=== PATIENT | female | born 1995 | race Caucasian/White ===

== ENCOUNTER 2018-01-09 14:39 | Inpatient (IN) | payer OTHER ==
[2018-01-09 14:46] LABS: Glucose,Whole Blood 111 mg/dL (75-99)
[2018-01-09] MEDS ORDERED: SODIUM CHLORIDE 0.9% 500 ML IV STA (14:47)
[2018-01-09 14:59] LABS: Basophils # (A) 0.1 k/uL (0-0.2); Basophils % (A) 0 %; Eosinophils # (A) 0.1 k/uL (0-0.7); Eosinophils % (A) 1 %; HCT 35.5 % (34.0-46.0); HGB 12.3 gm/dL (11.4-16.0); Lymphocytes # (A) 3.4 k/uL (1.0-4.8); Lymphocytes % (A) 20 %; MCH 31.8 pg (25.0-35.0); MCHC 34.6 g/dL (31.0-37.0); MCV 91.9 fL (80.0-100.0); Mean Platelet Volume 7.8; Monocytes # (A) 0.5 k/uL (0-1.0); Monocytes % (A) 3 %; Neutrophils # (A) 12.7 k/uL (1.3-7.7); Neutrophils % (A) 75 %; Platelet Count 212 k/uL (150-450); RBC 3.86 m/uL (3.80-5.40)
[2018-01-09 15:10] LABS: ALT 176 U/L (9-52); AST 221 U/L (14-36); Albumin 3.5 g/dL (3.5-5.0); Alcohol <10 mg/dL; Alkaline Phosphatase 147 U/L (38-126); Amylase 61 U/L (30-110); Anion Gap 10 mmol/L; Blood Urea Nitrogen 12 mg/dL (7-17); Calcium 9.1 mg/dL (8.4-10.2); Carbon Dioxide 20 mmol/L (22-30); Chloride 108 mmol/L (98-107); Glucose 106 mg/dL (74-99); Lipase 142 U/L (23-300); Potassium 4.2 mmol/L (3.5-5.1); Sodium 138 mmol/L (137-145); Total Bilirubin 0.5 mg/dL (0.2-1.3); Total Protein 6.1 g/dL (6.3-8.2)
[2018-01-09] MEDS ORDERED: LIDOCAINE 1% INJ 10MG/ML (20 ML MDV) ONE (15:10)
[2018-01-09] MEDS ORDERED: ONDANSETRON 4 MG/2 ML VIAL ONE (15:10)
[2018-01-09] MEDS ORDERED: OXYTOCIN 10 UNIT/ML 1 ML VIAL ONE (15:10)
[2018-01-09] MEDS ORDERED: PHENYLEPHRINE-0.9% NACL SYG 1 MG/10 ML SYRINGE ONE (15:10)
[2018-01-09] MEDS ORDERED: ROCURONIUM BROMIDE 10 MG/ML 10 ML VIAL IV ONE (15:10)
[2018-01-09] MEDS ORDERED: NEOSTIGMINE 1 MG/ML 10 ML VIAL ONE (15:10)
[2018-01-09] MEDS ORDERED: ETOMIDATE 2 MG/ML 10 ML VIAL ONE (15:10)
[2018-01-09] MEDS ORDERED: SUCCINYLCHOLINE CHLORIDE 100 MG/5 ML SYR IV ONE (15:10)
[2018-01-09] MEDS ORDERED: fentaNYL (PF) 50 MCG/ML 2 ML AMP ONE (15:10)
[2018-01-09] MEDS ORDERED: GLYCOPYRROLATE 0.2 MG/ML 2 ML VIAL ONE (15:10)
[2018-01-09] MEDS ORDERED: IV FLUID CONTINUATION 700 ML IV ONE (15:10)
[2018-01-09 15:11] LABS: Appearance,Urine Cloudy (Clear); Bilirubin,Urine Negative (Negative); Blood,Urine Moderate (Negative); Color,Urine Yellow; Glucose,Urine (UA) Trace (Negative); Ketones,Urine Negative (Negative); Leukocyte Esterase,Urine Negative (Negative); Mucus,Urine Rare /hpf; Nitrite,Urine Negative (Negative); Protein,Urine 1+ (Negative); RBC,Urine 79 /hpf (0-5); Specific Gravity,Urine 1.018 (1.001-1.035); Squamous Epithelial Cell,Urine 1 /hpf (0-4); Urobilinogen,Urine <2.0 mg/dL (<2.0); WBC,Urine 4 /hpf (0-5)
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
[2018-01-09 15:12] LABS: Creatine Kinase 131 U/L (30-135)
[2018-01-09] MEDS ORDERED: SODIUM CHLORIDE 0.9% 500 ML IV ONE (15:15)
[2018-01-09 15:17] LABS: INR 0.9 (<1.2); Prothrombin Time 9.3 sec (9.0-12.0)
[2018-01-09 15:17] LABS: Amphetamine Screen,Urine Not Detected (NotDetected); Barbiturate Screen,Urine Not Detected (NotDetected); Benzodiazepines Screen,Urine Not Detected (NotDetected); Cocaine Screen,Urine Not Detected (NotDetected); Methadone Screen, Urine Not Detected (NotDetected); Opiate Screen,Urine Not Detected (NotDetected); Oxycodone Screen, Urine Not Detected (NotDetected); Phencyclidine Screen,Urine Not Detected (NotDetected); Tricyclic Antidepressant,Urine Not Detected (NotDetected); Urn Cannabinoid Scrn Not Detected (NotDetected)
[2018-01-09] MEDS ORDERED: SODIUM CHLORIDE 0.9% 50 ML with ceFAZolin 2,000 MG IV ONE ×2 (15:17)
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
[2018-01-09 15:22] LABS: Partial Thromboplastin Time 20.5 sec (22.0-30.0)
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
[2018-01-09 15:25] LABS: Creatine Kinase MB 0.3 ng/mL (0.0-2.4); Troponin I <0.012 ng/mL (0.000-0.034)
[2018-01-09] MEDS ORDERED: LACTATED RINGERS 1,000 ML IV ONE (15:25)
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
[2018-01-09] MEDS: LACTATED RINGERS 1,000 ML IV ONE (16:07)
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
--- NOTE | 2018-01-09 16:11 | XR ---
EXAMINATION TYPE: XR chest 1V portable DATE OF EXAM: 01/09/2018 COMPARISON: Earlier in the day HISTORY: Chest pain, sliver pneumothorax on the right as well as rib fractures. TECHNIQUE: Single frontal view of the chest is obtained. FINDINGS: Endotracheal tube is appropriately placed. Patchy infiltrate right lower lobe felt to reflect pulmonary contusion. 2. No sizable pneumothorax identified on this examination. Sliver pneumothorax seen on CT. Right-sided rib fractures noted ribs 3 and 4. Left lung is clear. Cardiomediastinal silhouette is stable. IMPRESSION: 1. No evidence for progression of pneumothorax. Pneumothorax is not visible on this examination. 2. Pulmonary contusion with right-sided rib fractures.
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
[2018-01-09] MEDS ORDERED: HYDROmorphone 1 MG/ML 1 ML SYRINGE IVP ONE ×4 (16:25→17:35)
[2018-01-09 16:31] LABS: Basophils # (A) 0.1 k/uL (0-0.2); Basophils % (A) 0 %; Eosinophils # (A) 0.2 k/uL (0-0.7); Eosinophils % (A) 1 %; HCT 35.3 % (34.0-46.0); HGB 11.9 gm/dL (11.4-16.0); Lymphocytes # (A) 1.7 k/uL (1.0-4.8); Lymphocytes % (A) 7 %; MCHC 33.7 g/dL (31.0-37.0); Mean Platelet Volume 7.5; Monocytes # (A) 0.6 k/uL (0-1.0); Monocytes % (A) 3 %; Neutrophils # (A) 20.3 k/uL (1.3-7.7); Neutrophils % (A) 88 %; Platelet Count 167 k/uL (150-450); RBC 3.71 m/uL (3.80-5.40); RDW 14.1 % (11.5-15.5); WBC 23.1 k/uL (3.8-10.6)
[2018-01-09] MEDS ORDERED: ONDANSETRON 4 MG/2 ML VIAL IVP PRN (16:31)
[2018-01-09] MEDS ORDERED: diphenhydrAMINE 50 MG/ML 1 ML VIAL IVP PRN (16:31)
[2018-01-09] MEDS ORDERED: ACETAMINOPHEN TAB 325 MG TAB PO PRN (16:31)
[2018-01-09] MEDS ORDERED: NALOXONE 0.4 MG/ML 1 ML VIAL IV PRN (16:31)
[2018-01-09] MEDS ORDERED: diphenhydrAMINE 25 MG CAP PO PRN (16:31)
[2018-01-09] MEDS ORDERED: OXYTOCIN 20 UNITS/1000 ML NS 1,000 ML IV SCH (16:31)
[2018-01-09] MEDS ORDERED: ZOLPIDEM 5 MG TAB PO PRN (16:31)
[2018-01-09] MEDS ORDERED: LANOLIN CREAM 5 GM TUBE TOPICAL PRN (16:31)
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
[2018-01-09] MEDS: HYDROmorphone PCA 5 MG/25 ML SYRINGE IV PRN (18:08)
[2018-01-09] MEDS: KETOROLAC 30 MG/ML 1 ML VIAL IVP PRN (20:07)
[2018-01-09 21:26] VITALS: BMI 23.8
[2018-01-09] MEDS: FAMOTIDINE 20 MG/2 ML VIAL IV SCH (21:42)
[2018-01-09] MEDS: ceFAZolin IN SWFI 2 GM/20 ML SYRINGE IVP SCH (23:13)
[2018-01-10] MEDS: LACTATED RINGERS 1,000 ML IV ONE (00:40)
[2018-01-10] MEDS: LACTATED RINGERS 1,000 ML IV SCH ×4 (00:40→17:00)
[2018-01-10] MEDS: SENNOSIDES-DOCUSATE SODIUM 1 EACH TAB PO SCH ×3 (00:41→20:58)
[2018-01-10] MEDS: HYDROmorphone PCA 5 MG/25 ML SYRINGE IV PRN ×2 (01:11→12:11)
[2018-01-10] MEDS: KETOROLAC 30 MG/ML 1 ML VIAL IVP PRN ×3 (04:01→17:03)
[2018-01-10 05:44] LABS: Basophils % (A) 0 %; Eosinophils # (A) 0.1 k/uL (0-0.7); Eosinophils % (A) 1 %; Lymphocytes # (A) 1.3 k/uL (1.0-4.8); Lymphocytes % (A) 11 %; MCH 30.7 pg (25.0-35.0); MCHC 33.3 g/dL (31.0-37.0); MCV 92.4 fL (80.0-100.0); Mean Platelet Volume 8.4; Monocytes # (A) 0.5 k/uL (0-1.0); Monocytes % (A) 4 %; Neutrophils # (A) 9.2 k/uL (1.3-7.7); Neutrophils % (A) 83 %; Platelet Count 134 k/uL (150-450); RBC 3.14 m/uL (3.80-5.40); RDW 14.1 % (11.5-15.5)
[2018-01-10 05:48] LABS: HGB 9.7 gm/dL (11.4-16.0)
[2018-01-10 05:59] LABS: ALT 135 U/L (9-52); AST 164 U/L (14-36); Albumin 2.3 g/dL (3.5-5.0); Alkaline Phosphatase 88 U/L (38-126); Anion Gap 6 mmol/L; Blood Urea Nitrogen 8 mg/dL (7-17); Calcium 8.2 mg/dL (8.4-10.2); Carbon Dioxide 21 mmol/L (22-30); Chloride 107 mmol/L (98-107); Glucose 90 mg/dL (74-99); Potassium 4.1 mmol/L (3.5-5.1); Sodium 134 mmol/L (137-145); Total Bilirubin 0.3 mg/dL (0.2-1.3); Total Protein 4.5 g/dL (6.3-8.2)
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
[2018-01-10] MEDS: ceFAZolin IN SWFI 2 GM/20 ML SYRINGE IVP SCH (08:40)
[2018-01-10] MEDS: FAMOTIDINE 20 MG/2 ML VIAL IV SCH ×2 (08:47→20:59)
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
--- NOTE | 2018-01-10 09:32 | XR ---
EXAMINATION TYPE: XR ankle complete LT DATE OF EXAM: 01/10/2018 COMPARISON: NONE HISTORY: Pain FINDINGS: Three views of the ankle demonstrate the ankle mortise to be intact and symmetric. The joint spaces are preserved. The osseous structures are intact. IMPRESSION: 1. No definite acute fracture or dislocation, if symptoms persist follow-up study in 7 to 10 days wou ld be suggested.
--- NOTE | 2018-01-10 09:37 | XR ---
EXAMINATION TYPE: XR chest 1V DATE OF EXAM: 01/10/2018 COMPARISON: 01/09/2018 HISTORY: Pain TECHNIQUE: Single frontal view of the chest is obtained. FINDINGS: ET tube is been removed and there is improving interstitial pattern and bilateral perihila r infiltrates. No pleural effusion or pneumothorax. Heart size stable. Right-sided rib deformities ar e stable compatible with recent fracture. IMPRESSION: 1. Bilateral perihilar infiltrates demonstrated mild improvement consider pulmonary contusion or aspi ration. 2. Right-sided rib fractures with no sizable pneumothorax.
--- NOTE | 2018-01-10 13:55 | XR ---
EXAMINATION TYPE: XR pelvis complete DATE OF EXAM: 01/10/2018 COMPARISON: NONE HISTORY: Pain 2 views are submitted. Surgical vidya are noted. Mild concentric narrowing of the hip joint bilater ally. Slight deformity of a right SI joints are symmetric. Sacral foramina appears to correspond to t he CT abnormality. Lucency noted by CAT scan involving the ileum. IMPRESSION: 1. Fractures previously noted on the recent CT scan are not as well-seen by standard x-ray. In additi on there is a slight subtle deformity of the anterior superior pubic ramus near the pubic symphysis. Fracture cannot be excluded.
[2018-01-10 14:19] LABS: Basophils % (A) 0 %; Eosinophils % (A) 0 %; HGB 9.6 gm/dL (11.4-16.0); Lymphocytes # (A) 1.1 k/uL (1.0-4.8); Lymphocytes % (A) 11 %; MCH 31.8 pg (25.0-35.0); MCHC 34.4 g/dL (31.0-37.0); MCV 92.5 fL (80.0-100.0); Mean Platelet Volume 9.3; Monocytes # (A) 0.5 k/uL (0-1.0); Monocytes % (A) 5 %; Neutrophils % (A) 83 %; Platelet Count 115 k/uL (150-450); RBC 3.03 m/uL (3.80-5.40); WBC 9.6 k/uL (3.8-10.6)
[2018-01-10 14:28] LABS: ALT 123 U/L (9-52); AST 136 U/L (14-36); Albumin 2.5 g/dL (3.5-5.0); Alkaline Phosphatase 91 U/L (38-126); Anion Gap 7 mmol/L; Blood Urea Nitrogen 6 mg/dL (7-17); Calcium 8.2 mg/dL (8.4-10.2); Carbon Dioxide 25 mmol/L (22-30); Chloride 103 mmol/L (98-107); Glucose 79 mg/dL (74-99); Potassium 3.8 mmol/L (3.5-5.1); Sodium 135 mmol/L (137-145); Total Bilirubin 0.4 mg/dL (0.2-1.3); Total Protein 4.7 g/dL (6.3-8.2)
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
[2018-01-10] MEDS ORDERED: HYDROcodone/APAP 5-325MG 1 EACH TAB PO PRN (17:14)
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
[2018-01-11] MEDS: KETOROLAC 30 MG/ML 1 ML VIAL IVP PRN ×2 (01:02→08:37)
[2018-01-11] MEDS: HEPARIN SODIUM,PORCINE 5,000 UNIT/ML 1 ML VIAL SQ SCH ×3 (01:03→16:42)
[2018-01-11] MEDS: LACTATED RINGERS 1,000 ML IV SCH ×4 (01:04→20:33)
[2018-01-11] MEDS: SIMETHICONE 80 MG CHEWABLE PO PRN ×2 (01:09→13:07)
[2018-01-11] MEDS: HYDROmorphone PCA 5 MG/25 ML SYRINGE IV PRN ×2 (01:25→16:42)
[2018-01-11 07:53] LABS: Basophils % (A) 0 %; Eosinophils % (A) 0 %; HGB 9.8 gm/dL (11.4-16.0); Lymphocytes # (A) 1.1 k/uL (1.0-4.8); Lymphocytes % (A) 11 %; MCH 31.1 pg (25.0-35.0); MCHC 33.8 g/dL (31.0-37.0); Mean Platelet Volume 7.5; Monocytes # (A) 0.3 k/uL (0-1.0); Monocytes % (A) 3 %; Neutrophils # (A) 8.8 k/uL (1.3-7.7); Neutrophils % (A) 85 %; Platelet Count 138 k/uL (150-450); RBC 3.15 m/uL (3.80-5.40); RDW 14.1 % (11.5-15.5); WBC 10.3 k/uL (3.8-10.6)
[2018-01-11 08:06] LABS: ALT 91 U/L (9-52); AST 78 U/L (14-36); Albumin 2.4 g/dL (3.5-5.0); Alkaline Phosphatase 93 U/L (38-126); Anion Gap 9 mmol/L; Blood Urea Nitrogen 6 mg/dL (7-17); Calcium 8.2 mg/dL (8.4-10.2); Carbon Dioxide 23 mmol/L (22-30); Chloride 105 mmol/L (98-107); Glucose 83 mg/dL (74-99); Potassium 3.8 mmol/L (3.5-5.1); Sodium 137 mmol/L (137-145); Total Bilirubin 0.5 mg/dL (0.2-1.3); Total Protein 4.5 g/dL (6.3-8.2)
[2018-01-11] MEDS: SENNOSIDES-DOCUSATE SODIUM 1 EACH TAB PO SCH ×2 (08:32→20:51)
[2018-01-11] MEDS: FAMOTIDINE 20 MG/2 ML VIAL IV SCH ×2 (09:23→20:28)
--- NOTE | 2018-01-11 10:11 | P.PN ---
Progress Note - Text Progress Note Date: 01/11/18 The patient was seen at bedside this morning and I reviewed her computed tomography scan and pelvic x-rays with her. The fractures she has in her pelvis appear stable and can be managed non-operatively. She can weight-bear as tolerated on her right lower extremity and has no restrictions from an orthopedic standpoint. She will need to follow-up in our office in 1-2 weeks for repeat weightbearing x-rays of the pelvis.
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
[2018-01-11] MEDS: METOCLOPRAMIDE 5 MG/ML 2 ML VIAL IVP PRN ×2 (15:15→21:44)
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
[2018-01-12] MEDS: HEPARIN SODIUM,PORCINE 5,000 UNIT/ML 1 ML VIAL SQ SCH ×3 (08:46→18:16)
[2018-01-12] MEDS: FAMOTIDINE 20 MG/2 ML VIAL IV SCH (08:47)
[2018-01-12] MEDS: SENNOSIDES-DOCUSATE SODIUM 1 EACH TAB PO SCH ×2 (08:57→20:05)
[2018-01-12] MEDS: HYDROcodone/APAP 7.5-325MG 1 EACH TAB PO PRN ×3 (08:57→23:48)
[2018-01-12] MEDS: IBUPROFEN 600 MG TAB PO PRN ×2 (12:11→20:05)
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
[2018-01-13] MEDS: HEPARIN SODIUM,PORCINE 5,000 UNIT/ML 1 ML VIAL SQ SCH ×3 (02:09→20:57)
[2018-01-13] MEDS: IBUPROFEN 600 MG TAB PO PRN ×2 (03:58→18:40)
[2018-01-13] MEDS: FAMOTIDINE 20 MG/2 ML VIAL IV SCH ×2 (04:05→12:27)
[2018-01-13] MEDS: HYDROcodone/APAP 7.5-325MG 1 EACH TAB PO PRN ×4 (06:37→23:11)
[2018-01-13] MEDS: LACTATED RINGERS 1,000 ML IV SCH ×2 (06:39→21:58)
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
[2018-01-13] MEDS: SENNOSIDES-DOCUSATE SODIUM 1 EACH TAB PO SCH ×2 (08:30→21:05)
[2018-01-13] MEDS: FAMOTIDINE 20 MG TAB PO SCH (20:58)
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
[2018-01-14] MEDS: HEPARIN SODIUM,PORCINE 5,000 UNIT/ML 1 ML VIAL SQ SCH ×2 (03:52→11:53)
[2018-01-14] MEDS ORDERED: BISACODYL 10 MG SUPP RECTAL STA (08:39)
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
[2018-01-14] MEDS: FAMOTIDINE 20 MG TAB PO SCH (11:54)
[2018-01-14] MEDS: SENNOSIDES-DOCUSATE SODIUM 1 EACH TAB PO SCH (11:54)
--- NOTE | 2018-01-14 13:28 | P.PN ---
Subjective Progress Note Date: 01/14/18 Principal diagnosis: Pelvic fracture Patient is a 22-year-old female seen at bedside today. She is a nondisplaced fracture of her right posterior ilium which is stable on appearance with computed tomography scan as well as inlet and outlet views on x-rays. She has noted some increased pain with weightbearing and ambulation as well as movement of her right lower extremity as expected. She denies any new radicular symptoms including numbness or tingling. She has no left-sided symptoms. Pain is mainly in the area of the right buttock as expected. Patient denies any head pain, headache, neck pain, visual disturbance, calf pain , shortness or breath, fever, chills, numbness, tingling, weakness, radicular symptoms or other. Objective - Vital Signs Vital signs: Vital Signs Temp 98.3 F 01/14/18 08:00 Pulse 52 L 01/14/18 08:00 Resp 16 01/14/18 08:00 BP 110/68 01/14/18 08:00 Pulse Ox 98 01/14/18 08:00 - Exam There is tenderness along the right buttock, posterior superior iliac spine and iliosacral junction on right. She can actively flex against gravity with hip muscles. Painless passive ROM, knees and and ankles. She has pain with passive range of motion with hip flexion past 30 as well as minimal hip abduction as expected. Neurovascular status is intact with motor and sensation throughout the lower extremities. No myleopathic signs. No hyperreflexia. 2+ DP pulses and less than 2 sec cap refill present. Calves are soft and nontender. - Constitutional General appearance: Present: no acute distress - Psychiatric Psychiatric: Present: A&O x's 3, appropriate affect, intact judgment & insight - Labs CBC & Chem 7: 01/11/18 07:15 01/11/18 07:15 Assessment and Plan (1) Fracture, ilium closed Narrative/Plan: Patient has pain at the fracture site and is noticing more since [employer] has been discontinued as expected. Neurovascular status is intact with no true appreciable deficit. Strength and range of motion is limited due to pain as expected. Radiologic studies are show stable fracture. On exam there is no obvious deformity, she has adequate perfusion and she has sensation and motor throughout her right lower extremity. Patient can be weightbearing as tolerated. Prescription for a walker and/or crutches have been provided. She is cleared from orthopedic standpoint to be discharged. She is to follow-up with Dr. Mason in office in 1 week. Pain management per primary team. Current Visit: Yes Status: Acute Priority: Medium Code(s): S32.309A - UNSP FRACTURE OF UNSP ILIUM, INIT ENCNTR FOR CLOSED FRACTURE SNOMED Code(s): 04070625 Time with Patient: Less than 30
[2018-01-14] MEDS: HYDROcodone/APAP 7.5-325MG 1 EACH TAB PO PRN (14:34)
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
[2018-01-14 18:56] VITALS: BP 112/64; PULSE 68; RESP 20; TEMP 98.2
== END 2018-01-14 18:10 | disposition home or self-care (01) | DRG 765 ==
LOC: EC 14:39 → 6SEL 15:19 → 4FBP 17:58
PROVIDERS: ADMIT Surgery; ATTEND Surgery
PROC: 0WJG0ZZ Inspection of Peritoneal Cavity, Open Approach (ICD-10-PCS; 2018-01-09)
PROC: 10D00Z1 Extraction of Products of Conception, Low, Open Approach (ICD-10-PCS; principal; 2018-01-09 15:05)
DX: O9A.22 Injury, poisoning and certain other consequences of external causes complicating childbirth (principal); R40.2122 Coma scale, eyes open, to pain, at arrival to emergency department; S22.41XA Multiple fractures of ribs, right side, initial encounter for closed fracture; S32.301A Unspecified fracture of right ilium, initial encounter for closed fracture; S27.0XXA Traumatic pneumothorax, initial encounter; S27.321A Contusion of lung, unilateral, initial encounter; S36.899A Unspecified injury of other intra-abdominal organs, initial encounter; S36.81XA Injury of peritoneum, initial encounter; O45.93 Premature separation of placenta, unspecified, third trimester; F43.10 Post-traumatic stress disorder, unspecified; O99.344 Other mental disorders complicating childbirth; V43.62XA Car passenger injured in collision with other type car in traffic accident, initial encounter; Y92.410 Unspecified street and highway as the place of occurrence of the external cause; Z37.0 Single live birth; Z3A.38 38 weeks gestation of pregnancy; R40.2352 Coma scale, best motor response, localizes pain, at arrival to emergency department; R40.2252 Coma scale, best verbal response, oriented, at arrival to emergency department
CPT/HCPCS: 36415; 70450; 71045; 71260; 72125; 72128; 72131; 74018; 74177; 76376; 80053; 80306; 80320; 81001; 82150; 82550; 82553; 83605; 83690; 84484; 85025; 85610; 85730; 86850; 86900; 86901; 88307; 99291

== ENCOUNTER → 2024-02-21 | Outpatient (CLI) | payer OTHER ==
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
== END | disposition home or self-care (01) ==
LOC: RADUSWWP 15:51
PROVIDERS: ATTEND Family Medicine
DX: N92.1 Excessive and frequent menstruation with irregular cycle (principal)
CPT/HCPCS: 76856